=== PATIENT | male | born 1990 ===

== ENCOUNTER → 2017-09-30 10:14 | Emergency (ER) | payer SELFPAY | END | disposition left against medical advice (07) | LOC: ED 10:14 | DX: Z04.1 Encounter for examination and observation following transport accident (principal); Z53.21 Procedure and treatment not carried out due to patient leaving prior to being seen by health care provider; V09.9XXA Pedestrian injured in unspecified transport accident, initial encounter; Y93.89 Activity, other specified; Y99.8 Other external cause status; Y92.410 Unspecified street and highway as the place of occurrence of the external cause ==

== ENCOUNTER 2018-04-20 15:47 | Emergency (ER) | payer SELFPAY ==
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
[2018-04-20] MEDS ORDERED: ULTRAM PO ONE (18:37)
[2018-04-20 19:12] VITALS: BP 110/78
== END 2018-04-20 19:12 | disposition home or self-care (01) ==
LOC: ED 15:47
DX: T23.101A Burn of first degree of right hand, unspecified site, initial encounter (principal); G89.29 Other chronic pain; M79.602 Pain in left arm; M79.605 Pain in left leg; F17.200 Nicotine dependence, unspecified, uncomplicated; X19.XXXA Contact with other heat and hot substances, initial encounter; Y93.89 Activity, other specified; Y92.89 Other specified places as the place of occurrence of the external cause; Y99.8 Other external cause status
CPT/HCPCS: 99282